=== PATIENT | female | born 1965 ===

== ENCOUNTER 2021-08-21 22:04 | Emergency (ER) | payer SELFPAY ==
[2021-08-21 22:10] VITALS: BP 169/97
[2021-08-21] MEDS ORDERED: SODIUM CHLORIDE 0.9% 1000 ML 1,000 ML IV ONE (22:23)
[2021-08-21] MEDS ORDERED: MORPHINE 4 MG/1 ML INJ IV ONE (22:23)
[2021-08-21] MEDS ORDERED: ONDANSETRON 4 MG/2 ML INJ IV ONE (22:23)
[2021-08-21] MEDS ORDERED: FAMOTIDINE 20 MG/2 ML INJ IV ONE (22:23)
[2021-08-21 23:33] LABS: Basophils % (Auto) 0.4 % (0.0-1.8); Eosinophils # (Auto) 0.1 K/mm3 (0.0-0.4); Eosinophils % (Auto) 0.7 % (0.0-4.3); Hematocrit 45.6 % (30.3-42.9); Hemoglobin 14.8 gm/dl (10.1-14.3); Lymphocytes # (Auto) 1.6 K/mm3 (1.2-5.4); Lymphocytes % (Auto) 15.1 % (13.4-35.0); Mean Corpuscular HGB Conc 33 % (30-34); Mean Corpuscular Volume 87 fl (79-97); Monocytes # (Auto) 0.4 K/mm3 (0.0-0.8); Monocytes % (Auto) 4.1 % (0.0-7.3); Platelet Count 229 K/mm3 (140-440); Red Blood Count 5.24 M/mm3 (3.65-5.03); Red Cell Distribution Width 13.5 % (13.2-15.2)
[2021-08-21 23:38] LABS: Alanine Aminotransferase 22 units/L (7-56); Albumin 4.6 g/dL (3.9-5); Blood Urea Nitrogen 12 mg/dL (7-17); Calcium 9.7 mg/dL (8.4-10.2); Hemolysis Index 1
[2021-08-21 23:58] LABS: BUN/Creatinine Ratio 24
--- NOTE | 2021-08-22 00:39 | Cat Scan Report ---
CT ABDOMEN AND PELVIS WITH CONTRAST INDICATION / CLINICAL INFORMATION: Abdominal pain, N/V. TECHNIQUE: Axial CT images were obtained through the abdomen and pelvis after 100 cc Omnipaque [address] scans at this location are performed using CT dose reduction for ALARA by means of automated exposure control. COMPARISON: None available. FINDINGS: LOWER CHEST: No significant abnormality of the imaged chest. LIVER: No significant abnormality. GALLBLADDER: No significant abnormality. BILE DUCTS: No significant abnormality. SPLEEN: No significant abnormality. PANCREAS: No significant abnormality. ADRENALS: No significant abnormality. RIGHT KIDNEY / URETER: No significant abnormality. LEFT KIDNEY / URETER: No significant abnormality. STOMACH / DUODENUM / SMALL BOWEL: No significant abnormality. COLON: Colonic diverticulosis most numerous diverticula within the sigmoid colon. A short segment of sigmoid colon within the proximal sigmoid colon demonstrates circumferential wall thickening that cou ld reflect early diverticulitis. APPENDIX: No significant abnormality. PERITONEUM: No free air or free fluid are present within the abdomen or pelvis. LYMPH NODES: No significant adenopathy. AORTA / ARTERIES: No significant abnormality. IVC / VEINS: No significant abnormality. URINARY BLADDER: Moderately distended urinary bladder. Bladder otherwise unremarkable. REPRODUCTIVE ORGANS: Fibroid uterus. Some of the uterine fibroids are partially calcified. Ovaries un remarkable. ADDITIONAL ABDOMINAL/PELVIC FINDINGS: None. SKELETAL SYSTEM: No significant abnormality. IMPRESSION: 1. Early sigmoid diverticulitis is not excluded. Signer Name: Kendrick Harrison II, MD Signed: 08/22/2021 12:35 AM Workstation Name: [id number]
[2021-08-22] MEDS ORDERED: levoFLOXacin 500 MG TAB PO ONE (00:45)
[2021-08-22] MEDS ORDERED: metroNIDAZOLE 500 MG TAB PO ONE (00:45)
[2021-08-22] MEDS ORDERED: diphenhydrAMINE 50 MG/ML VIAL IV ONE (00:46)
[2021-08-22] MEDS ORDERED: METOCLOPRAMIDE 10 MG/2 ML INJ IV ONE (00:46)
[2021-08-22 02:14] LABS: Bilirubin,Urine NEG (Negative); Blood,Urine NEG (Negative); Color,Urine Colorless (Yellow); Mucus,Urine FEW /HPF; Protein,Urine <15 mg/dL mg/dL (Negative); Urobilinogen,Urine < 2.0 mg/dL (<2.0); WBC,Urine < 1.0 /HPF (0.0-6.0)
--- NOTE | 2021-08-22 02:40 | Emergency Department Report ---
ED Abdominal Pain HPI - General Chief Complaint: Abdominal Pain Stated Complaint: NAUSEA/VOMITING Source: patient Mode of arrival: Wheelchair Limitations: Language Barrier - History of Present Illness Initial Comments: Patient is a 56-year-old female with a history of hypertension and diabetes who is not on medications presents to the ED with complaint of acute onset persistent diffuse abdominal pain, nausea and vomiting for the last 8 hours. Patient states that she has not been able to keep anything down since the onset of the symptoms. Patient states that the pain starts in the lower abdomen and radiates diffusely to the periumbilical and epigastric area. Mendel freeman denies fever, chills, chest pain, shortness of breath, diarrhea, dysuria, urinary frequency and urgency, hematemesis, hematochezia, vaginal bleeding, vaginal discharge, low back pain, headache, cough, sore throat or low back pain. MD Complaint: abdominal pain, other (Nausea and vomiting) -: Sudden, hour(s) (8) Location: diffuse Radiation: none Migration to: no migration Severity: severe Severity scale (0 -10): 8 Quality: cramping, aching, sharp Consistency: constant Improves With: nothing Worsens With: vomiting Associated Symptoms: denies other symptoms, nausea, vomiting, anorexia. denies: diarrhea, fever, chills, dysuria, hematemesis, hematochezia, melena, hematuria, syncope - Related Data Previous Rx's Medication Instructions Recorded Last Taken Type Ciprofloxacin HCl 500 mg PO Q12H #20 tab 08/22/21 Unknown Rx Dicyclomine [Bentyl] 20 mg PO Q6H PRN #30 tablet 08/22/21 Unknown Rx Famotidine [Pepcid] 20 mg PO BID #60 tablet 08/22/21 Unknown Rx Ondansetron [Zofran Odt] 4 mg PO Q6HR PRN #20 tab.rapdis 08/22/21 Unknown Rx amLODIPine 10 mg PO DAILY #30 tab 08/22/21 Unknown Rx metFORMIN [Glucophage] 500 mg PO BID #60 08/22/21 Unknown Rx metroNIDAZOLE [Flagyl] 500 mg PO Q8HR #30 tablet 08/22/21 Unknown Rx traMADoL [Ultram] 50 mg PO Q6HR PRN #12 tablet 08/22/21 Unknown Rx Allergies Allergy/AdvReac Type Severity Reaction Status Date / Time No Known Allergies Allergy Unverified 08/21/21 22:06 ED Review of Systems ROS: Stated complaint: NAUSEA/VOMITING Other details as noted in HPI Constitutional: denies: chills, fever Eyes: denies: eye pain, eye discharge, vision change ENT: denies: ear pain, throat pain Respiratory: denies: cough, shortness of breath, wheezing Cardiovascular: denies: chest pain, palpitations Endocrine: no symptoms reported Gastrointestinal: abdominal pain, nausea, vomiting. denies: diarrhea Genitourinary: denies: urgency, dysuria, discharge Musculoskeletal: denies: back pain, joint swelling, arthralgia Skin: denies: rash, lesions Neurological: denies: headache, weakness, paresthesias Psychiatric: denies: anxiety, depression Hematological/Lymphatic: denies: easy bleeding, easy bruising ED Past Medical Hx - Past Medical History Previous Medical History?: Yes Hx Hypertension: Yes Hx Diabetes: (prediabetes) - Surgical History Past Surgical History?: Yes - Social History Smoking Status: Never Smoker Substance Use Type: None - Medications Home Medications: Home Medications Medication Instructions Recorded Confirmed Last Taken Type Ciprofloxacin HCl 500 mg PO Q12H #20 tab 08/22/21 Unknown Rx Dicyclomine [Bentyl] 20 mg PO Q6H PRN #30 tablet 08/22/21 Unknown Rx Famotidine [Pepcid] 20 mg PO BID #60 tablet 08/22/21 Unknown Rx Ondansetron [Zofran Odt] 4 mg PO Q6HR PRN #20 tab.rapdis 08/22/21 Unknown Rx amLODIPine 10 mg PO DAILY #30 tab 08/22/21 Unknown Rx metFORMIN [Glucophage] 500 mg PO BID #60 08/22/21 Unknown Rx metroNIDAZOLE [Flagyl] 500 mg PO Q8HR #30 tablet 08/22/21 Unknown Rx traMADoL [Ultram] 50 mg PO Q6HR PRN #12 tablet 08/22/21 Unknown Rx ED Physical Exam - General Limitations: Language Barrier General appearance: alert, in no apparent distress - Head Head exam: Present: atraumatic, normocephalic, normal inspection - Eye Eye exam: Present: normal appearance, PERRL, EOMI Pupils: Present: normal accommodation - ENT ENT exam: Present: normal exam, normal orophraynx, mucous membranes moist, TM's normal bilaterally, normal external ear exam - Neck Neck exam: Present: normal inspection, full ROM. Absent: tenderness - Respiratory Respiratory exam: Present: normal lung sounds bilaterally. Absent: respiratory distress, wheezes, rales, rhonchi, stridor, chest wall tenderness, accessory muscle use, decreased breath sounds, prolonged expiratory - Cardiovascular Cardiovascular Exam: Present: regular rate, normal rhythm, normal heart sounds. Absent: systolic murmur, diastolic murmur, rubs, gallop - GI/Abdominal GI/Abdominal exam: Present: soft, tenderness (Palpable diffuse abdominal tenderness), normal bowel sounds. Absent: guarding, rebound, hyperactive bowel sounds, hypoactive bowel sounds, organomegaly, bruit - Extremities Exam Extremities exam: Present: normal inspection, full ROM, normal capillary refill - Back Exam Back exam: Present: normal inspection, full ROM. Absent: tenderness, CVA tenderness (R), CVA tenderness (L), muscle spasm, paraspinal tenderness, vertebral tenderness - Neurological Exam Neurological exam: Present: alert, oriented X3, CN II-XII intact, normal gait, reflexes normal - Psychiatric Psychiatric exam: Present: normal affect, normal mood - Skin Skin exam: Present: warm, dry, intact, normal color. Absent: rash ED Course Vital Signs 08/21/21 22:06 Temperature 97.3 F L Pulse Rate 78 Respiratory 20 Rate Blood Pressure 169/97 [Right] O2 Sat by Pulse 100 Oximetry ED Medical Decision Making - Lab Data Result diagrams: 08/21/21 22:39 08/21/21 22:39 - Radiology Data Radiology results: report reviewed, [place] [address] Cat Scan Report Signed Patient: SLICK ELIZABETH MR#: [id number] : 1965 Acct:[id number] Age/Sex: 56 / F ADM Date: 08/21/21 Loc: ED Attending Dr: Ordering Physician: MENDEL GARG Date of Service: 08/21/21 Procedure(s): CT abdomen pelvis w con Accession Number(s): [id number] cc: MENDEL GARG CT ABDOMEN AND PELVIS WITH CONTRAST INDICATION / CLINICAL INFORMATION: Abdominal pain, N/V. TECHNIQUE: Axial CT images were obtained through the abdomen and pelvis after 100 cc Omnipaque [address] scans at this location are performed using CT dose reduction for ALARA by means of automated exposure control. COMPARISON: None available. FINDINGS: LOWER CHEST: No significant abnormality of the imaged chest. LIVER: No significant abnormality. GALLBLADDER: No significant abnormality. BILE DUCTS: No significant abnormality. SPLEEN: No significant abnormality. PANCREAS: No significant abnormality. ADRENALS: No significant abnormality. RIGHT KIDNEY / URETER: No significant abnormality. LEFT KIDNEY / URETER: No significant abnormality. STOMACH / DUODENUM / SMALL BOWEL: No significant abnormality. COLON: Colonic diverticulosis most numerous diverticula within the sigmoid colon. A short segment of sigmoid colon within the proximal sigmoid colon demonstrates circumferential wall thickening that could reflect early diverticulitis. APPENDIX: No significant abnormality. PERITONEUM: No free air or free fluid are present within the abdomen or pelvis. LYMPH NODES: No significant adenopathy. AORTA / ARTERIES: No significant abnormality. IVC / VEINS: No significant abnormality. URINARY BLADDER: Moderately distended urinary bladder. Bladder otherwise unremarkable. REPRODUCTIVE ORGANS: Fibroid uterus. Some of the uterine fibroids are partially calcified. Ovaries unremarkable. ADDITIONAL ABDOMINAL/PELVIC FINDINGS: None. SKELETAL SYSTEM: No significant abnormality. IMPRESSION: 1. Early sigmoid diverticulitis is not excluded. Signer Name: Aixa Mejia II, MD Signed: 08/22/2021 12:35 AM Workstation Name: [id number] Transcribed By: STACY Dictated By: AIXA MEJIA II, MD Electronically Authenticated By: AIXA MEJIA II, MD Signed Date/Time: 08/22/2134 DD/ TD/TT: Print - Medical Decision Making This is a 56-year-old female with a history of hypertension and diabetes who is not on medications presents to the ED with complaint of acute onset persistent diffuse abdominal pain, nausea and vomiting for the last 8 hours. Patient states that she has not been able to keep anything down since the onset of the symptoms. Patient states that the pain starts in the lower abdomen and radiates diffusely to the periumbilical and epigastric area. In the ED, patient is alert and oriented x3 and is not in any distress. Patient however appears to be in significant pain during the physical exam. Patient was treated for pain in the ED and also given antiemetics, antacids and normal saline 1 L IV bolus x1. Lab test results were reviewed and showed hyperglycemia of 218 mg/dL. The rest of the lab test results are nonactionable. Abdomen pelvis CT scan with contrast showed findings consistent with early sigmoid diverticulitis. Patient was therefore treated in the ED with Flagyl 500 mg p.o. x1 and Levaquin 500 mg p.o. x1. On reevaluation, patient's pain is well controlled medication. Patient will discharge home on pain medications and antibiotics and antacids as well as given prescription for diabetes and hypertension. Patient was advised to follow-up with her primary care physician in 5 to 7 days for reevaluation or return to the ED immediately if symptoms get worse. - Differential Diagnosis Appendicitis; gastroenteritis; UTI; diverticulitis; gastroparesis; Critical care attestation.: If time is entered above; I have spent that time in minutes in the direct care of this critically ill patient, excluding procedure time. ED Disposition Clinical Impression: Acute generalized abdominal pain, Nausea and vomiting in adult patient, Sigmoid diverticulitis Disposition: 01 HOME / SELF CARE / HOMELESS Is pt being admited?: No Does the pt Need Aspirin: No Condition: Stable Instructions: Diverticulitis, [id number], Nausea and Vomiting, Adult, [id number], Abdominal Pain, Adult, [id number], Abdominal Pain (ED) Additional Instructions: Se revisaron todos los resultados de las pruebas de laboratorio y no son procesables, excepto la hiperglucemia. La tomografa computarizada de abdomen y pelvis con contraste mostr diverticulitis sigmoidea temprana. Por lo tanto, tome la medicacin con alimentos, carol muchos lquidos y kelvin un seguimiento con calabrese mdico de atencin primaria en 7 a 10 killian para john reevaluacin. Regrese al servicio de urgencias inmediatamente si los sntomas empeoran. Prescriptions: amLODIPine 10 mg PO DAILY #30 tab Dicyclomine [Bentyl] 20 mg PO Q6H PRN #30 tablet PRN Reason: abdominal pain Ciprofloxacin HCl 500 mg PO Q12H #20 tab metroNIDAZOLE [Flagyl] 500 mg PO Q8HR #30 tablet metFORMIN [Glucophage] 500 mg PO BID #60 Famotidine [Pepcid] 20 mg PO BID #60 tablet traMADoL [Ultram] 50 mg PO Q6HR PRN #12 tablet PRN Reason: Pain Ondansetron [Zofran Odt] 4 mg PO Q6HR PRN #20 tab.rapdis PRN Reason: Nausea Referrals: ROCHELLE GONZALEZ MD [Primary Care Provider] - 3-5 Days Time of Disposition: 02:44 Print Language: FRENCH
--- NOTE | 2021-08-22 09:36 | Electrocardiograph Report ---
[facility] Test Date: 2021-08-21 Test Time: 23:39:09 Pat Name: SLICK ELIZABETH Department: Room: Gender: F Stage Driver: LV : 1965 Requested By: GINI HOPPER Order Number: [id number] Reading MD: Mamta Wen Measurements Intervals Melvin Rate: 63 P: 62 AL: 141 QRS: -12 QRSD: 86 T: 20 QT: 447 QTc: 459 Interpretive Statements Sinus rhythm Low voltage, precordial leads No previous ECG available for comparison Electronically Signed On 08-22-2021 9:35:45 EDT by Mamta Wen
== END 2021-08-22 04:03 | disposition home or self-care (01) ==
LOC: ED 22:04
DX: K57.32 Diverticulitis of large intestine without perforation or abscess without bleeding (principal); I10 Essential (primary) hypertension; Z79.899 Other long term (current) drug therapy
CPT/HCPCS: 36415; 74177; 80053; 81001; 82962; 83690; 84484; 85025; 93005; 96361; 96374; 96375; 99284; J1200; J2270; J2405; J2765; J3490; J7030; Q9967; Q0162